=== PATIENT | male | born 2000 | race Caucasian/White ===

== ENCOUNTER 2021-06-29 20:26 | Emergency (ER) | END 2021-06-29 21:39 | disposition home or self-care (01) | LOC: ERS 20:26 | DX: S50.812A Abrasion of left forearm, initial encounter (principal); S40.211A Abrasion of right shoulder, initial encounter; W26.0XXA Contact with knife, initial encounter; Z02.89 Encounter for other administrative examinations | CPT/HCPCS: 99283 ==

== ENCOUNTER 2021-08-11 09:17 | Emergency (ER) | payer OTHER, BC | END 2021-08-11 11:05 | LOC: ERS 09:17 | DX: M54.2 Cervicalgia (principal); V89.2XXA Person injured in unspecified motor-vehicle accident, traffic, initial encounter | CPT/HCPCS: 70450; 71045; 72125; 93005 ==

== ENCOUNTER 2022-03-23 19:58 | Emergency (ER) | payer BC ==
[2022-03-23] MEDS ORDERED: Lorazepam 1 MG TAB ONE (20:54)
== END 2022-03-23 21:03 | disposition home or self-care (01) ==
LOC: ERS 19:58
DX: F41.9 Anxiety disorder, unspecified (principal); F17.290 Nicotine dependence, other tobacco product, uncomplicated; Z79.899 Other long term (current) drug therapy
CPT/HCPCS: 99283